=== PATIENT | male | born 1955 | race African-American/Black ===

== ENCOUNTER 2018-03-10 01:09 | Emergency (ER) | payer BC ==
[~2018-03-10] VITALS: Ht 180.3 cm; Wt 117.9 kg
[2018-03-10 01:20] VITALS: BP 148/98
[2018-03-10] MEDS ORDERED: BENAZEPRIL HCL20 MG ORAL (01:27)
[2018-03-10] MEDS ORDERED: Norco 5mg/325mg tab ORAL ONE (02:00)
[2018-03-10] MEDS ORDERED: NORCO 5-325 TA1 EACH ORAL (03:05)
[2018-03-10] MEDS ORDERED: LIDOCAINE700 M1 TP (03:05)
[2018-03-10 03:44] VITALS: BP_SYST 147; BP_SYST 148; BP_DIAS 92; BP_DIAS 98
--- NOTE | 2018-03-10 12:05 | Diagnostic Imaging Report ---
Indications:Left elbow pain for 3 days, no trauma Technique: Three or 4 views of the elbow Comparison: None Findings: There is marked elevation of the anterior and posterior fat pads, consistent with a joint effusion. There is a large traction spur off of the olecranon. No definite acute fractures. The joint spaces are preserved. Impression: Evidence of large joint effusion. Given stated clinical history of absence of trauma, this is therefore most likely inflammatory in nature, either infectious or noninfectious. The possibility of occult fracture should also be considered, however. Degenerative changes, as described Findings discussed by phone with Dr. Petersen in the emergency room at the time of interpretation
--- NOTE | 2018-03-17 06:01 | Emergency Room Report ---
History of Present Illness General Chief Complaint: Pain Source: Patient Present Illness HPI Patient 63-year-old male who presented after increased left elbow pain and swelling. Patient gradual onset of symptoms. He had prior history of elbow injury with possible loose body in his joint. He reports having some mild prior history of gout. He denies any fever. He denies recent trauma. Patient states that this had occurred spontaneously and had increased pain. Allergies: Coded Allergies: PENICILLINS (Verified Allergy, Unknown, 03/10/18) Patient History Past Medical History: see triage record Reviewed Nursing Documentation: PMH: Agreed; PSxH: Agreed Nursing Documentation-PMH Hx Hypertension: Yes Review of Systems All Other Systems: negative except mentioned in HPI Physical Exam General Appearance: well appearing, no apparent distress, alert, GCS 15 Head: normocephalic, atraumatic ENT: hearing grossly normal, normal voice Neck: full range of motion, supple Respiratory: no respiratory distress, speaking full sentences Cardiovascular #1: normal peripheral pulses Musculoskeletal: normal inspection, swelling - left elbow decrease ROM, bursal swelling Neurologic: normal gait Psychiatric: mood/affect normal Skin: no rash Medical Decision Making Diagnostic Impression: Primary Impression: Bursitis Additional Impression: Pain ER Course Patient presented for left elbow pain. Differential diagnosis included was not limited to septic joint, arthritis, gout, bursitis among others.Because of complexity of patient's case imaging studies were ordered. The patient was given pain medications. X-ray imaging of the left elbow 3 views interpreted by me showed possible loose body without evident fracture. Soft tissue swelling was noted. Patient was advised follow-up with his primary care physician for further evaluation and treatment. Status: improved Disposition: HOME, SELF-CARE Condition: Stable Scripts Lidocaine (Lidocaine) 1 Each Adh..patch 5 % TP DAILY, #20 PATCH Prov: Itz Amaro MD 03/10/18 Hydrocodone Bit/Acetaminophen 5-325* (NORCO 5-325*) 1 Each Tablet 1 TAB ORAL Q6H PRN for For Pain, #10 TAB 0 Refills Prov: Itz Amaro MD 03/10/18 Patient Instructions: Bursitis Itz Amaro MD Mar 17, 2018 06:01
== END 2018-03-10 03:46 | disposition home or self-care (01) ==
LOC: EMR 01:52
DX: M70.32 Other bursitis of elbow, left elbow (principal); I10 Essential (primary) hypertension; Z88.0 Allergy status to penicillin
CPT/HCPCS: 99283